=== PATIENT | male | born 1955 | race Caucasian/White ===

== ENCOUNTER 2018-04-11 18:56 | Emergency (ER) | payer BC ==
[~2018-04-11] VITALS: Ht 175.3 cm; Wt 84.2 kg
[2018-04-11 18:57] VITALS: BP 145/78
[2018-04-11] MEDS ORDERED: DIPH,PERTUSS(ACELL),TET VAC/PF 0.5 ML IM-VACC ONE ×2 (19:30→19:51)
[2018-04-11] MEDS ORDERED: LIDOCAINE-MPF 1%, 5ML INFIL ONE (19:30)
[2018-04-11] MEDS ORDERED: LIDOCAINE-MPF 2% ,5ML ONE (19:44)
[2018-04-11] MEDS ORDERED: BACITRACIN ZINC OINT 500U/GM, 0.9 GM ONE (20:09)
== END 2018-04-11 20:46 | disposition home or self-care (01) ==
LOC: ED 20:40
DX: S61.411A Laceration without foreign body of right hand, initial encounter (principal); S60.571A Other superficial bite of hand of right hand, initial encounter; W54.0XXA Bitten by dog, initial encounter; Y93.89 Activity, other specified; Y92.098 Other place in other non-institutional residence as the place of occurrence of the external cause; Y99.8 Other external cause status
CPT/HCPCS: 12002; 90471; 90715; 96372; 99284